=== PATIENT | male | born 1990 ===

== ENCOUNTER 2019-01-01 00:30 | Emergency (ER) | payer BC ==
[2019-01-01] MEDS ORDERED: Belladonna-Phenobarbital PO STA (01:52)
[2019-01-01] MEDS ORDERED: Sodium Chloride 0.9% 1,000 ML IV STA (01:52)
[2019-01-01 02:05] LABS: BASO % 0.3 % (0.0-2.0); EOS # 0.1 K/uL (0.0-0.7); HEMOGLOBIN 16.6 g/dL (12.0-18.0); LYMPH # 1.1 K/uL (1.0-4.3); LYMPH % 10.7 % (20.0-40.0); MEAN CELL VOLUME 90.9 fL (80.0-94.0); MEAN CORPUSCULAR HEMOGLOBIN 29.6 pg (27.0-31.0); MEAN CORPUSCULAR HGB CONC 32.6 g/dL (33.0-37.0); MEAN PLATELET VOLUME 12.2 fL (7.2-11.7); MONO % 9.3 % (0.0-10.0); NEUT # 8.4 K/uL (1.8-7.0); NEUT % 78.7 % (50.0-75.0); NRBC % 0.1 % (0.0-2.0); RBC 5.61 Mil/uL (4.40-5.90); RED CELL DISTRIBUTION WIDTH 13.3 % (11.5-14.5); WHITE BLOOD COUNT 10.6 K/uL (4.8-10.8)
[2019-01-01] MEDS ORDERED: Belladonna-Phenobarbital ONE ×2 (02:11→02:15)
[2019-01-01 02:18] LABS: ALB/GLOB RATIO 1.6 (1.0-2.1); ALBUMIN 4.3 g/dL (3.5-5.0); ALT/SGPT 29 U/L (21-72); AST/SGOT 25 U/L (17-59); BLOOD UREA NITROGEN 19 mg/dL (9-20); CALCIUM 8.9 mg/dl (8.6-10.4); GFR NON-AFRICAN AMERICAN > 60; LIPASE 25 U/L (23-300)
[2019-01-01 03:02] LABS: URINE BILIRUBIN NEGATIVE (NEGATIVE); URINE BLOOD 1+ (NEGATIVE); URINE CLARITY Clear (Clear); URINE COLOR Yellow (YELLOW); URINE GLUCOSE (UA) NORMAL (Normal); URINE LEUKOCYTE ESTERASE NEG Leu/uL (Negative); URINE PROTEIN NEGATIVE (NEGATIVE)
--- NOTE | 2019-01-01 03:33 | C.PDOC ---
History Of Present Illness 28 year old male presents to the ED c/o abdominal pain associated with diarrhea for the past 1 day. Patient reports that last night he ate dinner at [employer]. Patient states that he woke up with abdominal pain and diarrhea that have been constant for the whole day. Patient denies fever, chills, nausea, vomit, rash, dysuria, hematuria, bloody stools. Time Seen by Provider: 01/01/19 01:07 Chief Complaint (Nursing): GI Problem History Per: Patient History/Exam Limitations: no limitations Onset/Duration Of Symptoms: Days (1) Current Symptoms Are (Timing): Still Present Context: Food Location Of Pain/Discomfort: Diffuse Radiation Of Pain To:: None Quality Of Discomfort: Cramping Associated Symptoms: Diarrhea. denies: Nausea, Vomiting, Urinary Symptoms Exacerbating Factors: Food Last Bowel Movement: Today Recent travel outside of the [place]: No Additional History Per: Patient Past Medical History Reviewed: Historical Data, Nursing Documentation, Vital Signs Vital Signs: Last Vital Signs Temp 98.9 F 01/01/19 00:39 Pulse 82 01/01/19 00:39 Resp 20 01/01/19 00:39 BP 128/79 01/01/19 00:39 Pulse Ox 98 01/01/19 00:39 - Medical History PMH: No Chronic Diseases Surgical History: No Surg Hx Family History: States: Unknown Family Hx - Social History Hx Alcohol Use: No Hx Substance Use: No - Immunization History Hx Tetanus Toxoid Vaccination: No Hx Influenza Vaccination: No Hx Pneumococcal Vaccination: No Review Of Systems Constitutional: Negative for: Fever, Chills Cardiovascular: Negative for: Chest Pain Respiratory: Negative for: Shortness of Breath Gastrointestinal: Positive for: Abdominal Pain, Diarrhea. Negative for: Nausea, Vomiting Genitourinary: Negative for: Dysuria, Hematuria Musculoskeletal: Negative for: Back Pain Skin: Negative for: Rash Neurological: Negative for: Weakness, Numbness Physical Exam - Physical Exam Appears: Non-toxic, No Acute Distress Skin: Normal Color, Warm, Dry Head: Atraumatic, Normacephalic Eye(s): bilateral: Normal Inspection Oral Mucosa: Moist Neck: Normal ROM, Supple Chest: Symmetrical Cardiovascular: Rhythm Regular Respiratory: Normal Breath Sounds, No Rales, No Rhonchi, No Wheezing Gastrointestinal/Abdominal: Soft, Tenderness (diffuse lower abdomen ), No Guarding, No Rebound Back: No CVA Tenderness Extremity: Normal ROM, No Tenderness, No Swelling Neurological/Psych: Oriented x3, Normal Speech, Normal Cognition Gait: Steady ED Course And Treatment - Laboratory Results Result Diagrams: 01/01/19 02:02 01/01/19 02:02 Lab Results: Total Bilirubin 0.5 mg/dL (0.2-1.3) 01/01/19 02:02 AST 25 U/L (17-59) 01/01/19 02:02 ALT 29 U/L (21-72) 01/01/19 02:02 Alkaline Phosphatase 57 U/L (38-126) 01/01/19 02:02 Total Protein 7.0 g/dL (6.3-8.3) 01/01/19 02:02 Albumin 4.3 g/dL (3.5-5.0) 01/01/19 02:02 Globulin 2.7 gm/dL (2.2-3.9) 01/01/19 02:02 Albumin/Globulin Ratio 1.6 (1.0-2.1) 01/01/19 02:02 Lipase 25 U/L (23-300) 01/01/19 02:02 Urine Color Yellow (YELLOW) 01/01/19 02:52 Urine Clarity Clear (Clear) 01/01/19 02:52 Urine pH 5.0 (5.0-8.0) 01/01/19 02:52 Ur Specific [place] 1.030 (1.003-1.030) 01/01/19 02:52 Urine Protein Negative mg/dL (NEGATIVE) 01/01/19 02:52 Urine Glucose (UA) Normal mg/dL (Normal) 01/01/19 02:52 Urine Ketones Negative mg/dL (NEGATIVE) 01/01/19 02:52 Urine Blood 1+ (NEGATIVE) H 01/01/19 02:52 Urine Nitrate Negative (NEGATIVE) 01/01/19 02:52 Urine Bilirubin Negative (NEGATIVE) 01/01/19 02:52 Urine Urobilinogen 2.0 mg/dL (0.2-1.0) 01/01/19 02:52 Ur Leukocyte Esterase Neg Heavenly/uL (Negative) 01/01/19 02:52 Urine WBC (Auto) 1 /hpf (0-5) 01/01/19 02:52 Urine RBC (Auto) 11 /hpf (0-3) H 01/01/19 02:52 O2 Sat by Pulse Oximetry: 98 (On RA) Pulse Ox Interpretation: Normal Progress Note: Plan: - Labs. - 1 tab PO. - Protonix 40 mg IVP. - IV fluids. - Toradol 30 mg IVP. - Zofran 4 mg IVP. - UA. Patient is tolerating PO in the ED, reports improvement after medications were given . Patient is advised to continue light diet, avoid heavy or greasy foods. Patient was advised to follow up with PMD/clinic for further evaluation. Disposition - Disposition Disposition: HOME/ ROUTINE Disposition Time: 05:30 Condition: IMPROVED Additional Instructions: Follow up with PMD within 1-2 days. Return to ED if feel worse. Prescriptions: Dicyclomine [Bentyl] 20 mg PO TID #30 tab Ondansetron ODT [Zofran ODT] 4 mg PO TID PRN #20 odt PRN Reason: Nausea/Vomiting Instructions: Viral Gastroenteritis, Adult (DC) Forms: [employer] (Yi) Print Language: SAUDI ARABIAN - Clinical Impression Clinical Impression: Gastroenteritis - PA / [employer] / Resident Statement MD/DO has reviewed & agrees with the documentation as recorded. - Scribe Statement The provider has reviewed the documentation as recorded by the Scribe iMchael Melendez All medical record entries made by the Scribe were at my direction and personally dictated by me. I have reviewed the chart and agree that the record accurately reflects my personal performance of the history, physical exam, medical decision making, and the department course for this patient. I have also personally directed, reviewed, and agree with the discharge instructions and disposition.
[2019-01-01 05:37] VITALS: BP 118/74; PULSE 74; RESP 18; TEMP 98.2
[2019-01-01 19:44] VITALS: O2SAT 98
== END 2019-01-01 05:58 | disposition home or self-care (01) ==
LOC: C.ER 00:30
DX: K52.9 Noninfective gastroenteritis and colitis, unspecified (principal)
CPT/HCPCS: 80053; 81001; 83690; 85025; 96361; 96374; 96375; 99285; C9113; J1885; J2405; J7030